=== PATIENT | female | born 1945 | race Caucasian/White ===

== ENCOUNTER 2017-06-26 14:50 | Emergency (ER) | payer OTHER, MEDICARE ==
[2014-02-23 14:13] VITALS: BMI 32.4
[~2017-06-26 14:50] MED LIST: MAG-OX 400 MG400 MG PO; PRAVASTATIN SOD10 MG PO; PRILOSEC20 MG PO; REMERON30 MG/UDTA PO; SYNTHROID75 MCG OR; ZYPREXA5 MG PO
== END 2017-06-26 17:06 | disposition home or self-care (01) ==
LOC: D.ER 14:50
DX: S05.11XA Contusion of eyeball and orbital tissues, right eye, initial encounter (principal); W19.XXXA Unspecified fall, initial encounter; Y93.89 Activity, other specified; Y92.019 Unspecified place in single-family (private) house as the place of occurrence of the external cause; S00.83XA Contusion of other part of head, initial encounter

== ENCOUNTER → 2017-11-26 08:59 | Outpatient (CLI) | payer MEDICARE ==
[2014-02-23 14:13] VITALS: BMI 32.4
== END | disposition home or self-care (01) ==
LOC: D.CT 08:59
DX: C25.9 Malignant neoplasm of pancreas, unspecified (principal)

== ENCOUNTER 2018-02-20 16:20 | Emergency (ER) | payer MEDICARE ==
[~2018-02-20] VITALS: Ht 165.1 cm; Wt 81.8 kg
[2018-02-20 16:34] VITALS: Ht 165.1 cm; Wt 81.8 kg
[2018-02-20 17:33] LABS: BASOPHILS 0.3 % (0-2); EOSINOPHILS 0.6 % (0-7); HEMATOCRIT 44.6 % (36.0-48.0); HEMOGLOBIN 14.7 g/dL (12-16); IMMATURE GRANULOCYTES 0.4 % (0-5); MCH 30.2 pg (26.0-34.0); MCV 91.8 fL (80.0-100.0); MONOCYTES 7.3 % (2-11); NEUTROPHILS 65.4 % (40-80); PLATELET COUNT 247 10x3/uL (130-400); RBC 4.86 10x6/uL (4.00-5.40); RDW 13.5 % (11.5-14.5); WBC 11.6 10x3/uL (4.8-10.8)
[2018-02-20 17:58] LABS: APPEARANCE CLEAR (CLEAR); COLOR DK YELLOW (YELLOW); GLUCOSE NEGATIVE (NEGATIVE); KETONE LARGE mg/dL (NEGATIVE); NITRITE NEGATIVE (NEGATIVE); PROTEIN TRACE mg/dL (NEGATIVE)
[2018-02-20 17:59] LABS: BILIRUBIN NEGATIVE (NEGATIVE); UROBILINOGEN NORMAL (NORMAL)
[2018-02-20 17:59] LABS: ANION GAP 14.3 mmol/L (8-16); BILIRUBIN - TOTAL 0.58 mg/dL (0.2-1.3); CALCIUM 8.9 mg/dL (8.5-10.1); CARBON DIOXIDE 27.4 mmol/L (21.0-32.0); CREATININE - SERUM 1.4 mg/dL (0.6-1.3); POTASSIUM - SERUM 3.7 mmol/L (3.5-5.1); PROTEIN - SERUM 8.2 g/dL (6.4-8.2)
[2018-02-20 18:00] LABS: BACTERIA MODERATE /hpf (NONE SEEN); EPITHELIAL CELLS 0-5 /hpf (0-5); HYALINE CAST 0-5 /lpf (NONE SEEN); WHITE CELLS - URINE 0-5 /hpf (0-5)
[2018-02-20 18:10] LABS: UDS - AMPHET NEGATIVE QUAL (NEGATIVE); UDS - BARB NEGATIVE QUAL (NEGATIVE); UDS - BENZO NEGATIVE QUAL (NEGATIVE); UDS - COCAINE NEGATIVE QUAL (NEGATIVE); UDS - OPIATE NEGATIVE QUAL (NEGATIVE); UDS - PCP NEGATIVE QUAL (NEGATIVE); UDS - THC NEGATIVE QUAL (NEGATIVE)
[2018-02-20 22:47] VITALS: BP 122/56
== END 2018-02-20 22:48 | disposition other institution (70) ==
LOC: D.ER 16:20
PROVIDERS: Family Medicine
DX: R41.82 Altered mental status, unspecified (principal); F31.9 Bipolar disorder, unspecified; Z85.3 Personal history of malignant neoplasm of breast

== ENCOUNTER 2020-02-05 14:26 | Inpatient (IN) | payer MEDICARE ==
[2020-02-05 14:56] LABS: UDS - AMPHET NEGATIVE QUAL (NEGATIVE); UDS - BARB NEGATIVE QUAL (NEGATIVE); UDS - BENZO NEGATIVE QUAL (NEGATIVE); UDS - COCAINE NEGATIVE QUAL (NEGATIVE); UDS - OPIATE NEGATIVE QUAL (NEGATIVE); UDS - PCP NEGATIVE QUAL (NEGATIVE); UDS - THC NEGATIVE QUAL (NEGATIVE)
[2020-02-05 15:03] LABS: BASOPHILS 0.6 % (0-2); EOSINOPHILS 0.9 % (0-7); HEMOGLOBIN 12.4 g/dL (12-16); IMMATURE GRANULOCYTES 2.4 % (0-5); LYMPHOCYTES 20.5 % (15-50); MCH 27.3 pg (26.0-34.0); MCHC 31.8 g/dL (31.0-37.0); MCV 85.9 fL (80.0-100.0); MEAN PLATELET VOLUME 9.5 fL (7.4-10.4); NEUTROPHILS 67.6 % (40-80); RBC 4.54 10x6/uL (4.00-5.40); RDW 14.7 % (11.5-14.5); WBC 11.6 10x3/uL (4.8-10.8)
[2020-02-05 15:08] LABS: BILIRUBIN NEGATIVE (NEGATIVE); KETONE NEGATIVE (NEGATIVE); NITRITE POSITIVE (NEGATIVE); UROBILINOGEN NORMAL (NORMAL)
[2020-02-05 15:12] LABS: BACTERIA MANY /hpf (NONE SEEN); EPITHELIAL CELLS 0-5 /hpf (0-5); WHITE CELLS - URINE >50 /hpf (0-5)
[2020-02-05 15:14] LABS: PLATELET COUNT 377 10x3/uL (130-400)
[2020-02-05 15:21] LABS: ANION GAP 11.7 mmol/L (8-16); CALCIUM 8.8 mg/dL (8.5-10.1); CARBON DIOXIDE 27.7 mmol/L (21.0-32.0); POTASSIUM - SERUM 4.4 mmol/L (3.5-5.1)
[2020-02-05 15:26] LABS: ALBUMIN 3.3 g/dL (3.4-5.0); BILIRUBIN - TOTAL 0.27 mg/dL (0.2-1.3); MAGNESIUM - SERUM 1.8 mg/dL (1.8-2.4); PROTEIN - SERUM 7.4 g/dL (6.4-8.2)
[2020-02-05] MEDS ORDERED: MACROBID100 MG PO ×2 (18:20→20:02)
--- NOTE | 2020-02-05 19:28 | NUR ---
PT TO SR CARE VIA WHEEL CHAIR.
[2020-02-05] MEDS ORDERED: ZYPREXA10 MG PO (19:42)
[2020-02-05] MEDS ORDERED: STOOL SOFTENER240 MG PO (19:42)
[2020-02-05] MEDS ORDERED: REMERON15 MG PO (19:43)
[2020-02-05] MEDS ORDERED: SYNTHROID75 MCG PO (19:43)
[2020-02-05] MEDS ORDERED: LISINOPRIL10 MG PO (19:44)
[2020-02-05] MEDS ORDERED: K-TAB10 MEQ PO (19:45)
[2020-02-05] MEDS ORDERED: OMEPRAZOLE20 M1 PO (19:45)
[2020-02-05] MEDS ORDERED: TRAZODONE HCL150 MG PO (19:46)
[2020-02-05] MEDS ORDERED: HYDROXYZINE HCL10 MG PO (19:47)
[2020-02-05 20:00] VITALS: BP 103/67
--- NOTE | 2020-02-05 22:33 | NUR ---
PATIENT ARRIVED AT 19;20 FOR OUR E.D. FROM [facility] FOR SUICIDAL STATEMENTS, GOING TO CUT HER WRIST, HISTORY OF TREATMENT AT THE [facility], PATIENT NOT ABLE TO BE PLACED AT [facility], CONSENT FROM SISTER YUMI CHOPRA, CODE STATUS 'FULL CODE', CODE JIMENEZ IS 6482, PATIENT CONTRACTS FOR SAFETY, STATES THAT SHE WANTS SOMEONE ELSE TO END HER LIFE AND STOP THE PAIN AND SUFFERING, WILL CONTINUE TO MONITOR.
[2020-02-06 01:43] VITALS: BP 103/67
[2020-02-06 06:47] LABS: BASOPHILS 0.7 % (0-2); EOSINOPHILS 1.1 % (0-7); HEMATOCRIT 38.7 % (36.0-48.0); HEMOGLOBIN 12.2 g/dL (12-16); IMMATURE GRANULOCYTES 3.4 % (0-5); LYMPHOCYTES 27.2 % (15-50); MCH 27.4 pg (26.0-34.0); MCHC 31.5 g/dL (31.0-37.0); MEAN PLATELET VOLUME 9.7 fL (7.4-10.4); MONOCYTES 7.1 % (2-11); NEUTROPHILS 60.5 % (40-80); PLATELET COUNT 393 10x3/uL (130-400); RBC 4.45 10x6/uL (4.00-5.40); RDW 14.9 % (11.5-14.5); WBC 10.4 10x3/uL (4.8-10.8)
[2020-02-06 07:53] LABS: ALBUMIN 3.2 g/dL (3.4-5.0); ANION GAP 14.1 mmol/L (8-16); BILIRUBIN - TOTAL 0.26 mg/dL (0.2-1.3); CALCIUM 9.1 mg/dL (8.5-10.1); CARBON DIOXIDE 26.2 mmol/L (21.0-32.0); CHOL - HDL RATIO 6.4 ratio (2.3-4.1); LDL-HDL RATIO 4.5 ratio (1.5-3.5); POTASSIUM - SERUM 4.3 mmol/L (3.5-5.1); PROTEIN - SERUM 7.1 g/dL (6.4-8.2); THYROID STIMULATING HORMONE 3.56 uIU/mL (0.36-3.74)
--- NOTE | 2020-02-06 13:03 | NUR ---
The patient awakens when someone talks to her, to eat her meals, and to take her meds, she spoke to the Dr. and the nurse, she is sleeping, isolative and has a blunted affect. She denies S.I., or H.I. Provide prescribed meds. The patient is compliant with meds, but she refused her insulin this am stating "I have never taken insulin in my life and I am not a diabetic as far as I know." She ambulates independently, eats, and toilets herself. Continue POC.
[2020-02-06 19:57] VITALS: BP 123/58
--- NOTE | 2020-02-06 23:55 | NUR ---
B.) PT IS ALERT AND ORIENTED X4. SHE IS WITHDRAWN THIS EVENING AND SELF ISOLATING. SHE IS ABLE TO VOICE NEEDS AND WANTS AT THIS TIME. SHE NEEDS NO ASSISTIVE DEVICES WHEN AMBULATING. I.) PROVIDED PM MEDICATIONS. REDIRECT IF NEEDED. R.) COMPLIANT WITH ALL MEDICATIONS. EASY TO REDIRECT. P.) WILL CONTINUE TO MONITOR.
[2020-02-07 03:18] LABS: BILIRUBIN NEGATIVE (NEGATIVE); KETONE NEGATIVE (NEGATIVE); NITRITE NEGATIVE (NEGATIVE); UROBILINOGEN NORMAL (NORMAL)
--- NOTE | 2020-02-07 08:47 | NUR ---
The patient is isolative and quiet, she does not have good eye contact, she is pleasnt and cooperative, but she does interact with staff or peers unless spoken to she has a flat to blunted affect. She denies S.I, or H.I., but she is depressed in mood and behavior. She sits to herself and sleeps. She ambulates, toilets, and feeds herself. Provide prescribed meds. Encourage the patient to participate in groups as they are offered throughout the day. Continue POC.
[2020-02-07 10:15] VITALS: BP 135/81
--- NOTE | 2020-02-07 11:59 | PSY ---
PATIENT NAME:DAYNA BENITEZ MEDICAL RECORD: [id number] : 41 LOCATION:[facility] Vee1127 ADMISSION DATE: 02/05/20 ACCOUNT: [id number] PSYCHIATRIC EVALUATION DATE OF EVALUATION: 02/06/20 IDENTIFYING DATA: The patient is 74 years old and she is admitted to the hospital on a voluntary basis. CHIEF COMPLAINT: Suicidal thoughts. HISTORY OF PRESENT ILLNESS: The patient endorses numerous neurovegetative depressive symptoms. Apparently, she is depressed over her cancer. She also has a history of mood disorder and endorses numerous neurovegetative depressive symptoms. PAST MEDICAL HISTORY: Significant for breast cancer and hypothyroidism. 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 She is receiving treatment for this. PAST PSYCHIATRIC HISTORY: Significant for extensive psychiatric treatment since the . She was diagnosed with bipolar disorder at that time and has had numerous hospitalizations. FAMILY PSYCHIATRIC HISTORY: Significant for her father being bipolar. ALLERGIES: PENICILLIN. CURRENT MEDICATIONS: Include Levaquin, potassium, Zyprexa, lisinopril, insulin, Synthroid, and trazodone. SOCIAL HISTORY: The patient is a retired dental kennel assistant. She also served in the [employer]. She has never and has no history of drug or alcohol addiction. MENTAL STATUS EXAMINATION: The patient is awake, alert, and oriented to person and place as well as time and somewhat to situation. Her mood is depressed. Her affect is constricted. Thought processes are circumstantial. Memory, concentration, and abstraction abilities are at least moderately impaired and she denies that she would seek to harm herself or others as well as overt psychotic symptoms. ASSESSMENT: AXIS I: Bipolar disorder, depressed. 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 AXIS III: Neuroendocrine tumor, hypothyroidism, diabetes, and hypertension. AXIS IV: Moderate stressors. AXIS V: Global assessment of functioning is 35. PLAN: At this time, the patient will be admitted to the hospital for comprehensive medical, psychological, and social evaluation. She will be treated with both antidepressant and mood stabilizing medications. Her long-term prognosis is guarded. TRANSINT:[id number] Voice Confirmation ID: [id number] DOCUMENT ID: [id number] OMI ESPINO MD at 1159 CC: [id number] DICTATION DATE: 02/06/20 1435 PIZZA BAKER: 02/06/201958 ADM IN [facility] [address] [place] [address]
--- NOTE | 2020-02-07 15:05 | NUR ---
The patient's sister called and wanted to check on her. Explained to her that phone call times are at 5:30 pm til 7:00 pm. The patient's sister "Laura" said she may not call back because today is her anniversary and they plan to go out to eat this evening. She said "Tell her I love her and I am thinking about her and I may try to call later." Let Tara know that Laura called. Tara said "Thank you for telling me."
--- NOTE | 2020-02-07 20:03 | NUR ---
RECEIVED IN DAYROOM. SITTING IN A CHAIR WITH PEERS AT HER SIDE. CALM AND COOPERATIVE WITH CARE AND ASSESSMENT. NO STATEMENTS OF SELF HARM VOICED THIS EVENING. ENCOURAGE TO EXPRESS NEEDS. CONTINUES TO SIT CALMLY IN DAYROOM. CONTINUE PLAN OF CARE.
[2020-02-07 20:41] VITALS: BP 152/66
--- NOTE | 2020-02-08 09:00 | PN ---
PATIENT:DAYNA BENITEZ MEDICAL RECORD: [id number] LOCATION:NORMA [facility]ir[facility]ario112 ADMISSION DATE: 02/05/20 PROGRESS NOTE DATE OF SERVICE: 02/07/2020 SUBJECTIVE: The patient's case was discussed with staff. She has no new complaint. OBJECTIVE: The patient has a depressed mood, but no active thoughts of harming herself or others. She is sleepy, but reasonably arousable. ASSESSMENT: Bipolar disorder, depressed. PLAN: The patient's Effexor is going to be increased to 75 mg twice daily and she will be started on Depakote. TRANSINT:[id number] Voice Confirmation ID: [id number] DOCUMENT ID: [id number] OMI ESPINO MD at 0900 CC: [id number] DICTATION DATE: 02/07/20 1312 SCIENTIFIC WRITER: 02/07/20 2136 ADM IN [place] [id number] [place] [id number]
[2020-02-08 09:47] VITALS: BP 127/77
[2020-02-08 11:04] VITALS: Wt 75.1 kg
--- NOTE | 2020-02-08 12:21 | NUR ---
PT IS AWAKE AND ALERT X4. PT DENIES SI AND HI AT THIS TIME. PT SELF ISOLATES. PRESCRIBED MEDS PROVIDED ORDERED. MED COMPLIANT. WILL CPOC.
--- NOTE | 2020-02-08 19:08 | NUR ---
RECEIVED IN DAYROOM. SITTING IN A CHAIR WITH PEERS AT HER SIDE. CALM AND COOPERATIVE WITH CARE AND ASSESSMENT. NO STATEMENTS OF SELF HARM VOICED AT THIS TIME. ENCOURAGE TO EXPRESS NEEDS. CONTINUES TO SIT CALMLY IN DAYROOM. CONTINUE PLAN OF CARE.
[2020-02-08 20:02] VITALS: BP 111/67
[2020-02-09 04:08] LABS: RAPID PLASMA REAGIN Non Reactive (Non Reactive)
[2020-02-09 08:30] VITALS: BP 126/75
--- NOTE | 2020-02-09 09:23 | NUR ---
PT IS AWAKE AND ALERT X 4. CALM AND COOPERATIVE WITH ASSESSMENT. PRESCRIBED MEDS PROVIDED ORDERED. MED COMPLIANT. PT DENIES SI AT THIS TIME. PT IS WITHDRAWN AT THIS TIME. PT ISOLATES SELF. WILL CPOC.
--- NOTE | 2020-02-09 11:11 | PN ---
PATIENT:DAYNA BENITEZ MEDICAL RECORD: [id number] LOCATION:[facility] Vee112 ADMISSION DATE: 02/05/20 PROGRESS NOTE DATE OF SERVICE: 02/08/2020 SUBJECTIVE: The patient's case was discussed with staff. She has no new complaint. OBJECTIVE: The patient is blunted and withdrawn. She says she does not want to hurt herself, but she says that in a way that is not at all convincing. ASSESSMENT: Bipolar depressed. PLAN: The patient has been started on Depakote. I have discussed the use of lithium with her, which I think would be helpful, but she is adamantly against it, indicating that it did not work in the past. I tried to question her about blood levels, how long she was on it and other circumstances, but was not able to make any headway. For the time being, I will continue on the Depakote. TRANSINT:[id number] Voice Confirmation ID: [id number] DOCUMENT ID: [id number] OMI ESPINO MD at 1111 CC: [id number] DICTATION DATE: 02/08/20 1608 FORESTRY FOREMAN: 02/09/20 0309 ADM IN [facility] [address] [place] [address]
--- NOTE | 2020-02-09 19:51 | NUR ---
RECEIVED IN DAYROOM. RESTING IN A RECLINING CHAIR WITH EYES CLOSED. RESPONDS TO VOICE. CALM AND COOPERATIVE WITH CARE AND ASSESSMENT. NO STATEMENTS OF SELF HARN VOICED. ENCOURAGE TO EXPRESS NEEDS. CONTINUES TO REST QUIETLY IN DAYROOM. CONTINUE PLAN OF CARE.
[2020-02-09 20:20] VITALS: BP 147/66
--- NOTE | 2020-02-10 08:56 | PN ---
PATIENT:DAYNA BENITEZ MEDICAL RECORD: [id number] LOCATION:[facility] Nanda112 ADMISSION DATE: 02/05/20 PROGRESS NOTE DATE OF SERVICE: 02/09/2020 SUBJECTIVE: The patient's case was discussed with staff. She has no new complaint. OBJECTIVE: The patient is depressed and withdrawn. She denies that she would seek to harm herself or others. ASSESSMENT: Bipolar disorder, depressed. PLAN: The patient is taking Depakote and Effexor. At this point, they have not had any significant effect, although it is something certainly that she is no longer wanting to hurt herself. TRANSINT:[id number] Voice Confirmation ID: [id number] DOCUMENT ID: [id number] OMI ESPINO MD at 0856 CC: [id number] DICTATION DATE: 02/09/20 1512 STONE SANDBLASTER: 02/09/20 2208 ADM IN [place] [id number] [place] [address]
--- NOTE | 2020-02-10 10:05 | NUR ---
PT IS AWAKE AND ALERT X 4. CALM AND COOPERATIVE WITH ASSESSMENT. PT RESTING IN RECLINING CHAIR. PT SELF ISOLATES DURING SHIFT. DENIES SI AT THIS TIME. PRESCRIBED MEDS PROVIDED ORDERED. MED COMPLIANT. WILL CPOC.
--- NOTE | 2020-02-10 10:34 | NUR ---
Nutrition Follow-up: Diet: Diabetic PO intake: ~53% average x last 9 meals Last BM: none since admit. Wt: 164.6# (02/08/20); Admit Wt: 165# (02/06/20) Meds noted: metformin, micro-k, SSI. Labs noted: POC Glu 147(H). Recommend continue current diet. Will add glucerna TID. RD following.
[2020-02-10 13:17] VITALS: BP 119/67
[2020-02-10 16:44] LABS: HEMATOCRIT 40.9 % (36.0-48.0); HEMOGLOBIN 12.8 g/dL (12-16); LYMPHOCYTES 23.5 % (15-50); MCH 27.3 pg (26.0-34.0); MCHC 31.3 g/dL (31.0-37.0); MCV 87.2 fL (80.0-100.0); MEAN PLATELET VOLUME 9.4 fL (7.4-10.4); NEUTROPHILS 68.6 % (40-80); RBC 4.69 10x6/uL (4.00-5.40); RDW 14.7 % (11.5-14.5); WBC 10.5 10x3/uL (4.8-10.8)
[2020-02-10 16:48] LABS: PLATELET COUNT 293 10x3/uL (130-400)
[2020-02-10 16:57] LABS: ANION GAP 15.2 mmol/L (8-16); CARBON DIOXIDE 25.2 mmol/L (21.0-32.0); CREATININE - SERUM 1.2 mg/dL (0.6-1.3); POTASSIUM - SERUM 4.4 mmol/L (3.5-5.1)
[2020-02-10 20:19] VITALS: BP 145/73
--- NOTE | 2020-02-11 02:21 | NUR ---
B.) PT IS ALERT AND ORIENTED X4. SHE IS WITHDRAWN. SHE IS OBSERVED SLUMPED OVER IN HER GERICHAIR. SHE IS ABLE TO AMBULATE ON HER OWN BUT IS UNSTEADY AT TIMES. I.) PROVIDED PM MEDICATIONS PRESCRIBED. REDIRECT NEEDED. R.) COMPLIANT WITH ALL MEDICATIONS. EASY TO REDIRECT. P.) WILL CONTINUE TO MONITOR.
--- NOTE | 2020-02-11 09:38 | NUR ---
The patient is awake, she awakens to eat and take her meds, but she is lethargic and she likes to lay around in the day room, she has not made any statements about suicide, but she is flat to blunted in affect. She is independent in ambulating, toileting, and feeding herself. Provide prescribed meds. She is compliant with meds. Encourage the patient to interact in groups and activities. Continue POC.
[2020-02-11 09:39] VITALS: BP 101/63
--- NOTE | 2020-02-11 10:18 | PN ---
PATIENT:DAYNA BENITEZ MEDICAL RECORD: [id number] LOCATION:[facility]112 ADMISSION DATE: 02/05/20 PROGRESS NOTE DATE OF SERVICE: 02/10/2020 SUBJECTIVE: The patient's case was discussed with staff. She has no new complaint. OBJECTIVE: The patient is tolerating her medications well. She has very poor insight about her situation. ASSESSMENT: Bipolar disorder, depressed. PLAN: The patient does have some excessive somnolence. Her basic labs will be checked and consideration will be given to using lithium. TRANSINT:[id number] Voice Confirmation ID: [id number] DOCUMENT ID: [id number] OMI ESPINO MD at 1018 CC: [id number] DICTATION DATE: 02/10/20 1553 USER EXPERIENCE ARCHITECT: 02/10/202019 ADM IN [place] [id number] [place] [address]
[2020-02-11 20:07] VITALS: BP 112/61
--- NOTE | 2020-02-11 21:40 | NUR ---
RECEIVED PATIENT IN DAYROOM, SHE IS ISOLATIVE, FLAT AFFECT, DENIES SUICIDIAL IDEATIONS, COMPLIANT WITH MEDS. WILL FOLLOW POC
[2020-02-12 09:00] VITALS: BP 118/63
--- NOTE | 2020-02-12 11:10 | NUR ---
The patient is awake, she is flat in affect, remains depressed. She has not made any S.I., or H.I. she is sleeping a lot, but she is watchful and she hears what is going on. She chooses not to engage in conversation unless she is spoken to. She ambulates, toilets, and feeds herself. Provide prescribed meds. The patient is compliant with meds. Continue POC.
[2020-02-12 20:00] VITALS: BP 141/72
--- NOTE | 2020-02-12 21:55 | NUR ---
RECEIVED PATIENT IN DAYROOM, SITTING NEXT TO OTHERS BUT VERY WITHDDRAWN, FLAT, ISOLATIVE. COMPLIANT WITH MEDS. WILL FOLLOW POC
[2020-02-13 09:18] VITALS: BP 123/69
--- NOTE | 2020-02-13 12:00 | NUR ---
RECEIVED IN HALLWAY OUTSIDE OF NURSES STATION. CALM AND COOPERATIVE WITH CARE AND ASSESSMENT. WITHDRAWN AND SELF ISOLATES FROM OTHERS. FLAT AFFECT. DENIES SUICIDAL IDEATION. REDIRECT AND REORIENT NEEDED. EATING AT THIS TIME. CONTINUE PLAN OF CARE.
--- NOTE | 2020-02-13 21:22 | NUR ---
RECEIVED PATIENT IN DAYROOM, EYES CLOSED, OPENS EYES WHEN CALLED. COMPLIANT WITH MEDS, NO ADVERSE REACTION TO MEDS, SHE HAS A VERY FLAT AFFECT, LETHARGIC, SLEEPING A LOT. NOT INTERACTING WITH OTHERS. WILL FOLLOW POC
[2020-02-13 21:28] VITALS: BP 118/62
[2020-02-14 08:53] VITALS: BP 109/73
--- NOTE | 2020-02-14 12:00 | NUR ---
RECEIVED IN HALLWAY OUTSIDE OF NURSES STATION. CALM AND COOPERATIVE WITH CARE AND ASSESSMENT. FLAT. WITHDRAWN. ISOLATES SELF FROM OTHERS. DENIES SUICIDAL IDEATION. REDIRECT AND REORIENT NEEDED. EATING AT THIS TIME. CONTINUE PLAN OF CARE.
[2020-02-14 20:03] VITALS: BP 133/79
--- NOTE | 2020-02-14 21:13 | NUR ---
RECEIVED IN DAYROOM. SITTING IN A CHAIR WITH PEERS AT HER SIDE. WITHDRAWN BUT WILL JOIN INTO GROUP WHEN ASK QUESTIONS. CALM AND COOPERATIVE WITH CARE AND ASSESSMENT. NO STATEMENTS OF SELF HARM VOICED AT THIS TIME. ENCOURAGE TO EXPRESS NEEDS. CONTINUES TO SIT CALMLY IN DAYROOM. CONTINUE PLAN OF CARE.
[2020-02-15 08:49] VITALS: BP 111/62
--- NOTE | 2020-02-15 08:49 | NUR ---
PT IS AWAKE AND ALERT X 3. CALM AND COOPERATIVE WITH ASSESSMENT. PRESCRIBED MEDS PROVIDED ORDERED. MED COMPLIANT. PT ISOLATES SELF FROM OTHERS, FLAT, AND WITHDRAWN. WILL CPOC.
--- NOTE | 2020-02-15 09:13 | PN ---
PATIENT:DAYNA BENITEZ MEDICAL RECORD: [id number] LOCATION:[facility] Nanda112 ADMISSION DATE: 02/05/20 PROGRESS NOTE DATE OF SERVICE: 02/11/2020 SUBJECTIVE: The patient's case was discussed with staff. She has no new complaint. OBJECTIVE: The patient is in good behavioral control. She is depressed and withdrawn. She is eating and drinking. ASSESSMENT: Bipolar disorder, depressed. PLAN: I have reviewed the patient's medicines. Her Depakote level is therapeutic. She will be monitored for clinical changes associated with its use. TRANSINT:[id number] Voice Confirmation ID: [id number] DOCUMENT ID: [id number] OMI ESPINO MD at 0913 CC: [id number] DICTATION DATE: 02/11/20 1639 TRAVEL REGISTERED NURSE ONCOLOGY: 02/11/20 1841 ADM IN [place] [id number] [place] [address]
--- NOTE | 2020-02-15 19:46 | NUR ---
RECEIVED IN DAYROOM. SITTING IN A CHAIR WITH PEERS AT HER SIDE. CALM AND COOPERATIVE WITH CARE AND ASSESSMENT. NO STATEMENTS OF SELF HARM VOICED. ENCOURAGE TO EXPRESS NEEDS. CONTINUES TO SIT CALMLY IN DAYROOM. CONTINUE PLAN OF CARE.
[2020-02-15 20:28] VITALS: BP 130/66
[2020-02-16 09:17] VITALS: BP 122/61
--- NOTE | 2020-02-16 12:00 | NUR ---
RECEIVED IN HALLWAY OUTSIDE OF NURSES STATION. FLAT. WITHDRAWN. SELF ISOLATES. CALM AND COOPERATIVE WITH CARE AND ASSESSMENT. DENIES SUICIDAL IDEATION. REDIRECT AND REORIENT NEEDED. EATING AT THIS TIME. CONTINUE PLAN OF CARE.
[2020-02-16 19:53] VITALS: BP 140/70
--- NOTE | 2020-02-16 22:13 | NUR ---
RECEIVED IN DAYROOM. SITTING IN A CHAIR WITH PEERS AT HER SIDE. CALM AND COOPERATIVE WITH CARE AND ASSESSMENT. WITHDRAWN. ENCOURAGE TO EXPRESS NEEDS. NO STATEMENTS OF SELF HARM VOICED THIS EVENING. ENCOURAGE TO EXPRESS NEEDS. RESTING IQUIETLY IN BED AT THIS TIME. CONTINUE PLAN OF CARE.
[2020-02-17 07:36] LABS: BILIRUBIN NEGATIVE (NEGATIVE); KETONE NEGATIVE (NEGATIVE); NITRITE NEGATIVE (NEGATIVE); UROBILINOGEN NORMAL (NORMAL)
--- NOTE | 2020-02-17 08:22 | PN ---
PATIENT:DAYNA BENITEZ MEDICAL RECORD: [id number] LOCATION:[facility] Nanda112 ADMISSION DATE: 02/05/20 PROGRESS NOTE DATE OF SERVICE: 02/16/2020 SUBJECTIVE: The patient's case was discussed with staff. She has no new complaint. OBJECTIVE: The patient is calmer and less agitated. She has limited insight about her situation. She is sleeping and eating well. ASSESSMENT: Bipolar disorder, depressed. PLAN: The patient is going to be maintained on current medications. Her long-term prognosis is guarded. TRANSINT:[id number] Voice Confirmation ID: [id number] DOCUMENT ID: [id number] OMI ESPINO MD at 0822 CC: [id number] DICTATION DATE: 02/16/20 1658 PHYSICIAN/OPHTHALMOLOGIST: 02/17/20 0108 ADM IN [facility] [address] [place] [address]
[2020-02-17 09:15] VITALS: BP 119/79
--- NOTE | 2020-02-17 09:34 | NUR ---
Nutrition Follow-up: Diet: Diabetic + Glucerna TID PO intake: ~85% average x last 9 meals Last BM: 02/12/20. Wt: 166# (02/14/20); Admit Wt: 165# (02/06/20) Meds noted: dulcolax, metformin, micro-k, SSI. Labs noted: POC Glu 132(H) Recommend continue current diet and oral nutrition supplements. RD following.
--- NOTE | 2020-02-17 11:43 | NUR ---
RECEIVED THIS AM SITTING IN CHAIR IN HALLWAY AT NURSES STATION.CONFUSED.AMBULATES.COMPLIANT WITH STAFF AND MEDS.SELF ISOLATES.DENIES THOUGHTS OF SELF HARM.WILL CONTINUE WITH CURRENT PLAN OF CARE,MONITOR FOR CHANGES AND SAFETY.
[2020-02-17 20:11] VITALS: BP 149/68
--- NOTE | 2020-02-17 22:45 | NUR ---
B) Patient is alert and oriented to person, place and month, depressed, flat I) Administered scheduled medications as ordered, encouraged interaction, R) Mediation compliant, keeps to herself, withdrawn, P) Continue plan of care.
--- NOTE | 2020-02-18 08:48 | PN ---
PATIENT:DAYNA BENITEZ MEDICAL RECORD: [id number] LOCATION:[facility] Nanda112 ADMISSION DATE: 02/05/20 PROGRESS NOTE DATE OF SERVICE: 02/17/2020 SUBJECTIVE: The patient's case was discussed with staff. She has no new complaint. OBJECTIVE: The patient is withdrawn, but significantly better. ASSESSMENT: Bipolar disorder, depressed. PLAN: The patient will be maintained on current medications. Her Depakote level will be checked to make sure it is not creeping upward into a toxic range. TRANSINT:[id number] Voice Confirmation ID: [id number] DOCUMENT ID: [id number] OMI ESPINO MD at 0848 CC: [id number] DICTATION DATE: 02/17/20 1544 COSTUME DRAPER: 02/17/202027 ADM IN [place] [id number] [place] [address]
[2020-02-18 10:08] VITALS: BP 118/65
--- NOTE | 2020-02-18 12:57 | NUR ---
FLAT AFFECT.ORIENTED TO SELF WITH CONFUSION.COMPLIANT WITH STAFF AND MEDS.KEEPS EYES CLOSED MOST OF THE TIME,STATES SHE IS NOT SLEEPING BUT IS RESTING .WILL CONTINUE WITH CURRENT PLAN OF CARE,MONITOR FOR CHANGES AND SAFETY.
[2020-02-18 20:03] VITALS: BP 154/73
--- NOTE | 2020-02-19 02:40 | NUR ---
B) Patient is alert and oriented to person, place and month, withdrawn and lays in her chair I) Administered scheduled medications as ordered, monitored for safety R) Medication compliant, flat affect, self isolating, P) Continue plan of care.
[2020-02-19 07:46] VITALS: BP 126/77
--- NOTE | 2020-02-19 09:09 | PN ---
PATIENT:DAYNA BENITEZ MEDICAL RECORD: [id number] LOCATION:[facility] Vee112 ADMISSION DATE: 02/05/20 PROGRESS NOTE DATE OF SERVICE: 02/18/2020 SUBJECTIVE: The patient's case was discussed with staff. She has no new complaint. OBJECTIVE: The patient is in good behavioral control. She has poor insight about her situation. ASSESSMENT: Bipolar disorder, depressed. The patient's situation has improved. She is more talkative, awake, and interactive. Her Depakote level is still therapeutic. PLAN: I anticipate the patient can be transitioned out of the hospital soon. If she has no particular problems over the weekend, I would look at returning her to the assisted living center. TRANSINT:[id number] Voice Confirmation ID: [id number] DOCUMENT ID: [id number] OMI ESPINO MD at 0909 CC: [id number] DICTATION DATE: 02/18/20 1509 SPOT MACHINE OPERATOR: 02/18/202056 ADM IN [place] [id number] [place] [address]
--- NOTE | 2020-02-19 09:44 | NUR ---
pt sitting in chair with eyes closed. pt is alert to person, place and time. pt is still a bit withdrawn. pt is talking a bit more with staff when spoken to. pt can make needs known. ambulates. pt is calm and cooperative with staff. pt denies SI. pt is compliant with meds, vitals and assesments. FSBS: 132 mg/dl. will cont plan of care.
--- NOTE | 2020-02-19 15:33 | NUR ---
PT HAD DIAHRREA AT THIS TIME. NURSE ADMINISTERED 2 MG OF IMODIUM FOR DIAHRREA. WILL CONT TO MONITOR.
[2020-02-19 20:33] VITALS: BP 135/62
--- NOTE | 2020-02-19 21:06 | NUR ---
B.) PT IS ALERT AND ORIENTED TO SELF, PLACE AND SITUATION. SHE IS RECEIVED IN THE DAYROOM. SHE IS WITHDRAWN AND SELF ISOLATING. SHE IS PLEASANT WITH STAFF. SHE C/O OF DIARRHEA THIS EVENING. I.) PROVIDED PM MEDICATIONS. REDIRECT NEEDED. R.) COMPLIANT WITH ALL MEDICATIONS. EASY TO REDIRECT. P.) WILL CONTINUE TO MONITOR.
--- NOTE | 2020-02-20 07:41 | NUR ---
The patient is calm and quiet. She is awake and she is oriented x3, she sits to herself and doesn't typically socialize unless she is spoken to first. She has poor insight into her situation. She ambulates, toilets, and eats independently. Provide prescribed meds. The patient is compliant with meds. Continue POC.
[2020-02-20 08:12] VITALS: BP 118/73
--- NOTE | 2020-02-20 21:36 | NUR ---
B) Patient is alert and oriented to person and place, quiet and keeps to herself, withdrawn, I) Administered scheduled medication as ordered, monitored for safety, R) Mediation compliant, sleeping quietly now, P) Continue plan of care.
[2020-02-20 21:45] VITALS: BP 134/68
[2020-02-21 08:11] VITALS: BP 116/69
--- NOTE | 2020-02-21 11:09 | NUR ---
The patient is awake and she is flat, she denies being depressed. She denies S.I. she is withdrawn and isolates. Provide prescribed meds. The patient is compliant with meds. She ambulates, toilets, and feeds herself. She is cooperative and she speaks when spoken to otherwise she is quiet and sleeps, but she listens to what is going on. Continue POC.
--- NOTE | 2020-02-21 20:38 | NUR ---
RECEIVED IN DAYROOM. SITTING IN A CHAIR WITH PEERS AT HER SIDE. CALM AND COOPERATIVE WITH CARE AND ASSESSMENT. NO STATEMENTS OF SELF HARM VOICED AT THIS TIME. ENCOURAGE TO EXPRESS NEEDS. IN GROUP IN DAYROOM AT THIS TIME. CONTINUE PLAN OF CARE.
[2020-02-21 20:41] VITALS: BP 139/65
[2020-02-22 09:00] VITALS: BP 124/70
--- NOTE | 2020-02-22 14:21 | NUR ---
ORIENTED TO SELF.HAS PARTICIPATED IN MOST OF THE ACTIVITIES TODAY BUT IS NOW SITTING IN RECLINER WITH EYES CLOSED.HAS FLAT AFFECT.IS COMPLIANT WITH STAFF AND MEDS.DENIES THOUGHTS OF SELF HARM.WILL CONTINUE WITH CURRENT PLAN OF CARE,MONITOR FOR CHANGES AND SAFETY.
[2020-02-22] MEDS ORDERED: LISINOPRIL5 MG PO (16:47)
[2020-02-22] MEDS ORDERED: ZYPREXA5 MG PO (16:48)
[2020-02-22] MEDS ORDERED: DEPAKOTE500 MG PO (16:48)
[2020-02-22] MEDS ORDERED: EFFEXOR37.5 MG PO (16:48)
[2020-02-22] MEDS ORDERED: PROTONIX40 MG PO (16:49)
[2020-02-22] MEDS ORDERED: SURFAK240 MG PO (16:49)
[2020-02-22] MEDS ORDERED: VITAMIN B-121000 MCG PO (16:49)
[2020-02-22] MEDS ORDERED: METFORMIN HCL500 M1 PO (16:49)
--- NOTE | 2020-02-22 19:40 | NUR ---
RECEIVED IN DAYROOM. SITTING IN A CHAIR WITH PEERS AT HER SIDE. CALM AND COOPERATIVE WITH CARE AND ASSESSMENT. NOT SOCIALIZING WITH PEERS. NO STATEMENTS OF SELF HARM VOICED THIS EVENING. ENCOURAGE TO EXPRESS NEEDS. CONTINUES TO SIT QUIETLY IN DAYROOM. CONTINUE PLAN OF CARE.
[2020-02-22 20:06] VITALS: BP 130/67
[2020-02-23 09:00] VITALS: BP 140/76
--- NOTE | 2020-02-23 09:10 | PN ---
PATIENT:DAYNA BENITEZ MEDICAL RECORD: [id number] LOCATION:[facility] V[facility]112 ADMISSION DATE: 02/05/20 PROGRESS NOTE DATE OF SERVICE: 02/22/2020 SUBJECTIVE: The patient's case was discussed with staff. She has no new complaint. OBJECTIVE: The patient is in good behavioral control with limited insight about her condition. She has dramatically improved and will be returned to [facility] tomorrow. TRANSINT:[id number] Voice Confirmation ID: [id number] DOCUMENT ID: [id number] OMI ESPINO MD at 0910 CC: [id number] DICTATION DATE: 02/22/20 1646 PACKAGING INSPECTOR: 02/23/20 0231 ADM IN [place] [id number] [place] [address]
--- NOTE | 2020-02-23 11:00 | NUR ---
SW CALLED PT'S SISTER AND LEFT VOICEMAIL STATING SISTER WILL DISCHARGE TODAY. SW LEFT UNIT NUMBER IN CASE SISTER HAD ANY FURTHER QUESTIONS.
--- NOTE | 2020-02-23 13:15 | NUR ---
PT DISCHARGED TO [facility] PER MANAGER PRIVATE. NO S/SX OF DISTRESS NOTED. ALL PAPERWORK FAXED AND COPY OF PAPERWORK SENT WITH PT AT TIME OF DISCHARGE. ALL BELONGINGS SENT WITH PT.
--- NOTE | 2020-02-24 11:20 | PN ---
PATIENT:DAYNA BENITEZ MEDICAL RECORD: [id number] LOCATION:[facility] ADMISSION DATE: 02/05/20 PROGRESS NOTE DATE OF SERVICE: 02/23/2020 SUBJECTIVE: The patient's case was discussed with staff. She has no new complaint. OBJECTIVE: The patient's condition has improved and she is about to be transitioned out of the hospital and back to the correction today. ASSESSMENT: Bipolar disorder, depressed. PLAN: Followup will be with her primary care physician. NTS:[id number] Voice Confirmation ID: [id number] DOCUMENT ID: [id number] OMI ESPINO MD at 1120 CC: [id number] DICTATION DATE: 02/23/20 1620 SOIL CONSERVATION TECHNICIAN: 02/24/20 0041 DIS IN 02/23/20 [facility] [address] [place] [address]
== END 2020-02-23 13:15 | DRG 885 ==
LOC: D.ER 14:26 → D.PSYCH 18:23
PROVIDERS: Emergency Medicine; Family Medicine; ADMIT Psychiatry & Neurology Psychiatry; ATTEND Psychiatry & Neurology Psychiatry
DX: F31.30 Bipolar disorder, current episode depressed, mild or moderate severity, unspecified (principal); N30.00 Acute cystitis without hematuria; C7B.8 Other secondary neuroendocrine tumors; E11.9 Type 2 diabetes mellitus without complications; I10 Essential (primary) hypertension; M19.91 Primary osteoarthritis, unspecified site; K59.01 Slow transit constipation; E03.8 Other specified hypothyroidism; E06.3 Autoimmune thyroiditis; T14.91XA Suicide attempt, initial encounter; X78.1XXA Intentional self-harm by knife, initial encounter; E03.9 Hypothyroidism, unspecified; K21.9 Gastro-esophageal reflux disease without esophagitis; E53.8 Deficiency of other specified B group vitamins